=== PATIENT | female | born 1955 | race Caucasian/White ===

== ENCOUNTER → 2017-01-04 | Outpatient (CLI) | payer MEDICARE | LOC: RAD 11:30 | PROVIDERS: ATTEND Internal Medicine Medical Oncology | DX: R51 Headache (principal) | CPT/HCPCS: 70551 ==

== ENCOUNTER → 2017-07-25 | Outpatient (CLI) | payer MEDICARE ==
--- NOTE | 2017-07-25 15:06 | WOMENS IMAGING REPORT ---
EXAM DESCRIPTION: 3D SCREENING MAMMO LEFT COMPLETED DATE/TIME: 07/25/2017 1:21 pm REASON FOR STUDY: SCREENING MAMMO Z12.31 ENCNTR SCREEN MAMMOGRAM FOR MALIGNANT NEOPLASM OF TAMIKO COMPARISON: 07/01/2016 TECHNIQUE: Standard craniocaudal and mediolateral oblique views of the breast recorded using digital acquisition and breast tomosynthesis. LIMITATIONS: None. FINDINGS: BREAST: left No masses, calcifications or architectural distortion. No areas of suspicion. Read with the assistance of CAD. .[facility] - R2 Cenova Version 1.3 .[facility] Imaging - R2 Cenova Version 1.3 .[facility] - R2 Cenova Version 2.4 .[facility] [place]2 Cenova Version 2.4 .[facility] - R2 Agency Cashier Version 9.2 IMPRESSION: NORMAL MAMMOGRAM. BIRADS 1. BREAST DENSITY: b. There are scattered areas of fibroglandular density. BIRAD: 1 Negative RECOMMENDATION: RECOMMENDATION: ROUTINE SCREENING. COMMENT: The patient has been notified of the results by letter per SA requirements. Additional no tification policies are in place for contacting patient with suspicious or incomplete findings. Quality ID #[id number]: The [employer] recommends an annual screening mammogram for women aged 40 years or over. This facility utilizes a reminder system to ensure that all patients receive reminder letters, and/or direct phone calls for appointments. This includes reminders for routine scr eening mammograms, diagnostic mammograms, or other Breast Imaging Interventions when appropriate. Th is patient will be placed in the appropriate reminder system. The [employer] (ACR) has developed recommendations for screening MRI of the breast s in certain patient populations, to be used in conjunction with mammography. Breast MRI surveillance may be appropriate for women with more than 20% lifetime risk of developing breast cancer as determi jairo by genetic testing, significant family history of the disease, or history of mantle radiation for Hodgkins Disease. ACR Practice Guidelines 2008. DBT Technology DBT is a type of tomographic mammography. With conventional mammography, overlapping breast tissue ma y make lesions difficult to detect, even with good compression. DBT uses an x-ray tube that rotates a round the breast, taking images at different angles. These images are then combined to create thin sl ices of the breast that the radiologist can view as a 3D reconstruction. The [employer] unit can perform full-field digital mammograms (2D imaging); or DBT (3D imaging); or both, in a combination mode that quickly performs both the mammogram and the tomosynthesis scan while the breast is still compressed. PQRS 6045F: Fluoroscopic imaging is not utilized for breast tomosynthesis. TECHNICAL DOCUMENTATION: FINDING NUMBER: (1) ASSESSMENT: (1) JOB ID: [id number] [employer]- All Rights Reserved
== END ==
LOC: WI 13:26
PROVIDERS: ATTEND Internal Medicine Medical Oncology
DX: Z12.31 Encounter for screening mammogram for malignant neoplasm of breast (principal)
CPT/HCPCS: 77063; G0202

== ENCOUNTER → 2017-09-20 | Outpatient (CLI) | payer MEDICARE ==
--- NOTE | 2017-09-20 16:26 | RADIOLOGY REPORT (SQ) ---
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 TECHNIQUE: Multiplanar multisequence imaging performed without and with contrast including axial, sa gittal and coronal T2, axial T, axial gradient fat sat T1, axial, sagittal and coronal fat sat T2 pos t contrast. CONTRAST TYPE AND DOSE: 10 mL Multihance. RENAL FUNCTION: GFR > 60. LIMITATIONS: None. FINDINGS: BLADDER AND URETHRA: No focal bladder wall thickening or nodularity. Smooth mucosa. The urethra has smooth contour with no focal asymmetry. No abnormal enhancement. No focal lesions. PELVIC SOFT TISSUES: Normal. No masses. UTERUS: Nabothian cysts, otherwise unremarkable. RIGHT OVARY: Not discretely seen. Artifact related to previous tubal ligation. LEFT OVARY: Not discretely seen. Artifact related to previous tubal ligation. FREE FLUID: None. PELVIC SKELETAL STRUCTURES: No bone lesions. No marrow edema. No evidence of marrow replacement. S I joints intact. EXTRA PELVIS SOFT TISSUES: No masses. OTHER: No other significant finding. IMPRESSION: 1. Normal MRI of the pelvis. No soft tissue mass or bone lesion evident. TECHNICAL DOCUMENTATION: JOB ID: [id number]- All Rights Reserved
--- NOTE | 2017-09-20 16:34 | RADIOLOGY REPORT (SQ) ---
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 Also correlated with separately dictated pelvic MRI from same date. TECHNIQUE: Sagittal and Axial imaging includes T1, T1 post gadolinium, T2, STIR and gradient echo se quences. Coronal T2/HASTE imaging. CONTRAST TYPE AND DOSE: 10 mL Multihance. RENAL FUNCTION: GFR > 60. LIMITATIONS: None. FINDINGS: VISUALIZED UPPER ABDOMEN: Limited evaluation. No acute or suspicious findings suggested. SEGMENTATION: No transitional anatomy. The lowest well-developed disc space is labeled L5-S1. ALIGNMENT: Straightening. Subtle scoliotic curve convex to the right. No significant listhesis, how ever. VERTEBRAE: Multilevel compression fractures, essentially at all of the levels visualized. No associa franklin marrow edema, however. These fractures look chronic. BONE MARROW: No suspicious bone lesions. DISC SIGNAL: Detailed below. Multilevel diminished signal. POSTERIOR ELEMENTS: No pars defect. Multilevel fairly mild facet degenerative overgrowth. HARDWARE: None in the spine. CORD AND CONUS: Normal in size and signal intensity. Conus at the appropriate level. SOFT TISSUES: No aortic aneurysm seen. No bulky retroperitoneal adenopathy or mass. No paraspinal mas s or fluid. L1-L2: Mild disc and facet disease with slight central and foraminal narrowing. L2-L3: Mild disc and facet disease with slight central and foraminal narrowing. L3-L4: Mild disc and facet disease. Slight central and foraminal narrowing. L4-L5: No central stenosis. Fairly mild bilateral foraminal narrowing. L5-S1: Mild left foraminal narrowing. LOWER THORACIC: Incompletely imaged. No stenosis seen. SACRUM: Visualized upper sacrum intact. ENHANCEMENT: No abnormal enhancement. OTHER: No other significant findings. IMPRESSION: 1. Chronic changes in the lumbar spine including numerous old compression fractures. N o acute fracture. No high-grade spinal stenosis. No worrisome bone lesion or abnormal enhancement. TECHNICAL DOCUMENTATION: JOB ID: [id number] [facility]- All Rights Reserved
== END ==
LOC: RAD 14:23
PROVIDERS: ATTEND Internal Medicine Medical Oncology
DX: C90.01 Multiple myeloma in remission (principal)
CPT/HCPCS: 82565; 72158; 72197; A9577

== ENCOUNTER → 2018-07-27 | Outpatient (CLI) | payer MEDICARE ==
--- NOTE | 2018-07-28 09:32 | WOMENS IMAGING REPORT ---
EXAM DESCRIPTION: 3D SCREENING MAMMO LEFT COMPLETED DATE/TIME: 07/27/2018 4:21 pm REASON FOR STUDY: SCREENING MAMMO Z12.31 ENCNTR SCREEN MAMMOGRAM FOR MALIGNANT NEOPLASM OF TAMIKO COMPARISON: 2015, 2016 TECHNIQUE: Standard craniocaudal and mediolateral oblique views of the breast recorded using digital acquisition and breast tomosynthesis. LIMITATIONS: None. FINDINGS: BREAST: left Findings present which are benign by mammographic criteria. No suspicious masses, calcifications or a rchitectural distortion. Pertinent benign findings: Stable calcifications. Read with the assistance of CAD. .[facility] - R2 Cenova Version 1.3 .[facility] - R2 Cenova Version 1.3 .[facility] - R2 Cenova Version 2.4 .[facility] R2 Cenova Version 2.4 .[facility] - R2 Offal Separator Version 9.2 Benign mammographic findings may include one or more of the following: Smooth masses, popcorn/rim/co arse calcifications, asymmetries, post-procedure changes, and lesions with long-standing stability. IMPRESSION: NORMAL MAMMOGRAM. BIRADS 2. BREAST DENSITY: b. There are scattered areas of fibroglandular density. BIRAD: 2 Benign Finding(s) RECOMMENDATION: RECOMMENDATION: ROUTINE SCREENING. COMMENT: The patient has been notified of the results by letter per SA requirements. Additional no tification policies are in place for contacting patient with suspicious or incomplete findings. Quality ID #225: The [employer] recommends an annual screening mammogram for women aged 40 years or over. This facility utilizes a reminder system to ensure that all patients receive reminder letters, and/or direct phone calls for appointments. This includes reminders for routine scr eening mammograms, diagnostic mammograms, or other Breast Imaging Interventions when appropriate. Th is patient will be placed in the appropriate reminder system. The [employer] (ACR) has developed recommendations for screening MRI of the breast s in certain patient populations, to be used in conjunction with mammography. Breast MRI surveillance may be appropriate for women with more than 20% lifetime risk of developing breast cancer as determi jairo by genetic testing, significant family history of the disease, or history of mantle radiation for Hodgkins Disease. ACR Practice Guidelines 2008. DBT Technology DBT is a type of tomographic mammography. With conventional mammography, overlapping breast tissue ma y make lesions difficult to detect, even with good compression. DBT uses an x-ray tube that rotates a round the breast, taking images at different angles. These images are then combined to create thin sl ices of the breast that the radiologist can view as a 3D reconstruction. The [employer] unit can perform full-field digital mammograms (2D imaging); or DBT (3D imaging); or both, in a combination mode that quickly performs both the mammogram and the tomosynthesis scan while the breast is still compressed. PQRS 6045F: Fluoroscopic imaging is not utilized for breast tomosynthesis. TECHNICAL DOCUMENTATION: FINDING NUMBER: (1) ASSESSMENT: (1) JOB ID: [id number] [employer]- All Rights Reserved Reading location - IP/workstation name: [email or web address]
== END ==
LOC: WI 13:09
PROVIDERS: ATTEND Internal Medicine Medical Oncology
DX: Z12.31 Encounter for screening mammogram for malignant neoplasm of breast (principal)

== ENCOUNTER → 2018-08-27 | Outpatient (CLI) | payer MEDICARE ==
--- NOTE | 2018-08-28 10:11 | RADIOLOGY REPORT (SQ) ---
EXAM DESCRIPTION: PET CT WHOLE BODY COMPLETED DATE/TIME: 08/27/2018 8:05 pm REASON FOR STUDY: MYELOMA, BREAST CANCER C90.01 MULTIPLE MYELOMA IN REMISSION COMPARISON: 05/30/2011. RADIONUCLIDE AND DOSE: 10 mCi F18 FDG The route of agent administration: Intravenous FASTING BLOOD SUGAR: 103 mg/dl CONTRAST TYPE AND DOSE: No CT contrast given. TECHNIQUE: Blood glucose level was verified. Above dose of FDG was injected intravenously. 2-D seg mented attenuation correction images were obtained through the entire body. Noncontrast CT images we re obtained for attenuation correction and fusion with emission images. CT images were performed wit hout oral or intravenous contrast and are not sensitive for parenchymal lesions. A series of overlap ping emission PET images were obtained. Images reviewed and manipulated at independent work station by the radiologist. Images stored on PACS. LIMITATIONS: None. FINDINGS: HEAD AND NECK: No areas of abnormal metabolic activity in the soft tissues of the head and neck. CHEST: No areas of abnormal metabolic activity in the chest. ABDOMEN AND PELVIS: No areas of abnormal metabolic activity in the abdomen or pelvis. Expected physi ologic activity is present in the genitourinary system and bowel. LOWER EXTREMITIES: No areas of abnormal metabolic activity in the soft tissues of the lower extremiti es. BONES: No abnormal metabolic activity in the visualized skeleton. ADDITIONAL CT FINDINGS: No additional significant findings on the noncontrast CT images. OTHER: No other significant findings. Background blood pool activity mean SUV 2.23. Background live r activity mean SUV 2.67. IMPRESSION: UNREMARKABLE PET-CT SCAN. NO AREAS OF ABNORMAL METABOLIC ACTIVITY. TECHNICAL DOCUMENTATION: JOB ID: [id number] [employer]- All Rights Reserved Reading location - IP/workstation name: [facility]
== END ==
LOC: RAD 15:50
PROVIDERS: ATTEND Internal Medicine Medical Oncology
DX: C90.01 Multiple myeloma in remission (principal); Z85.3 Personal history of malignant neoplasm of breast
CPT/HCPCS: 78816; A9552

== ENCOUNTER → 2018-09-27 | Outpatient (CLI) | payer MEDICARE, MEDICAID ==
--- NOTE | 2018-09-27 11:47 | RADIOLOGY REPORT (SQ) ---
EXAM DESCRIPTION: RIBS RIGHT W/PA CHEST COMPLETED DATE/TIME: 09/27/2018 10:56 am REASON FOR STUDY: PLEURODYNIA R07.81 PLEURODYNIA COMPARISON: PET-CT 08/27/2018 Skeletal survey 07/01/2016 TECHNIQUE: Frontal view of the chest and additional views of the right ribs acquired. NUMBER OF VIEWS: PA chest, right rib detail four views LIMITATIONS: None. FINDINGS: FRONTAL CXR: No acute infiltrates. No pleural effusion or pneumothorax. Cardiac silhouet te size, drew, bony structures unremarkable. Surgical clips right breast and right upper quadrant po st cholecystectomy. RIBS: No displaced rib fractures. No lytic or blastic bony lesions. OTHER: No other significant finding. IMPRESSION: NO PNEUMOTHORAX. NO DISPLACED RIB FRACTURES. COMMENT: SITE OF TRAUMA/COMPLAINT MARKED/STAMP COMPLETED: YES. TECHNICAL DOCUMENTATION: JOB ID: [id number] [employer]- All Rights Reserved Reading location - IP/workstation name: [email or web address]
== END ==
LOC: OD 09:12
PROVIDERS: ATTEND Internal Medicine Medical Oncology
DX: R07.81 Pleurodynia (principal)

== ENCOUNTER 2018-12-14 06:30 | Day surgery (SDC) | payer MEDICARE, MEDICAID ==
[2018-12-08 13:25] LABS: HEMATOCRIT 38.8 % (36.0-47.0); HEMOGLOBIN 13.7 g/dL (12.0-15.5); MEAN CORPUSCULAR HEMOGLOBIN 35.7 pg (27.0-33.4); MEAN CORPUSCULAR HGB CONC 35.2 g/dL (32.0-36.0); MEAN CORPUSCULAR VOLUME 101 fl (80-97); PLATELET COUNT 181 10^3/uL (150-450); RED BLOOD COUNT 3.83 10^6/uL (3.72-5.28); RED CELL DISTRIBUTION WIDTH 12.4 % (11.5-14.0); WHITE BLOOD COUNT 4.8 10^3/uL (4.0-10.5)
[2018-12-08 13:28] LABS: APPEARANCE,URINE CLEAR; BILIRUBIN,URINE NEGATIVE (NEGATIVE); COLOR,URINE YELLOW; GLUCOSE, URINE NEGATIVE (NEGATIVE); KETONES,URINE NEGATIVE (NEGATIVE); LEUKOCYTE ESTERASE,URINE NEGATIVE (NEGATIVE); NITRITE,URINE NEGATIVE (NEGATIVE); PROTEIN,URINE NEGATIVE (NEGATIVE); URINE SPECIFIC GRAVITY 1.009; UROBILINOGEN,URINE NEGATIVE mg/dL (<2.0)
[2018-12-08 13:44] LABS: ALANINE AMINOTRANSFERASE 27 U/L (9-52); ALBUMIN 4.1 g/dL (3.5-5.0); ALKALINE PHOSPHATASE 55 U/L (38-126); ANION GAP 8 (5-19); ASPARTATE AMINO TRANSFERASE 23 U/L (14-36); BILIRUBIN,DIRECT 0.1 mg/dL (0.0-0.4); BILIRUBIN,TOTAL 0.3 mg/dL (0.2-1.3); BLOOD UREA NITROGEN 18 mg/dL (7-20); CALCIUM 9.2 mg/dL (8.4-10.2); CARBON DIOXIDE 30 mmol/L (22-30); CHLORIDE 101 mmol/L (98-107); GLUCOSE 87 mg/dL (75-110); POTASSIUM 4.3 mmol/L (3.6-5.0); SODIUM 138.8 mmol/L (137-145); TOTAL PROTEIN 6.5 g/dL (6.3-8.2)
--- NOTE | 2018-12-08 21:22 | EKG REPORT ---
SEVERITY:- ABNORMAL ECG - SINUS TACHYCARDIA PROBABLE LEFT ATRIAL ABNORMALITY BORDERLINE LEFT AXIS DEVIATION BORDERLINE T WAVE ABNORMALITIES : Confirmed by: Renae Reed MD 08-Dec-2018 21:20:42
[~2018-12-14 06:30] MED LIST: CEFAZOLIN 1 GM/D5W RTU 1 GM/50 ML RTUPB IV ONE; CEFAZOLIN 1 GM/D5W RTU 1 GM/50 ML RTUPB IV PRN; LACTATED RINGERS 1000 ML IV PRN; LIDOCAINE 0.5% INJ-PF (5 MG/ML) 50 ML SDV SUBCUT PRN
[2018-12-14] MEDS ORDERED: ACETAMINOPHEN 1,000 MG/100 ML RTUPB IV ONE ×2 (08:54→18:00)
[2018-12-14] MEDS ORDERED: HYDROMORPHONE HCL INJ/PF 2 MG/ML AMPULE ONE (08:54)
[2018-12-14] MEDS ORDERED: FENTANYL CITRATE INJ/PF 250 MCG/5 ML AMPULE ONE (08:54)
[2018-12-14] MEDS ORDERED: PROPOFOL INJ 200 MG/20 ML VIAL IV ONE (08:54)
[2018-12-14] MEDS ORDERED: MIDAZOLAM 2 MG/2 ML INJ ONE (08:54)
[2018-12-14] MEDS ORDERED: DEXAMETHASONE SOD PHOSPHATE INJ 4 MG/1 ML VIAL ONE (10:06)
[2018-12-14] MEDS ORDERED: SUCCINYLCHOLINE CHLORIDE INJ 200 MG/10 ML VIAL ONE (10:06)
[2018-12-14] MEDS ORDERED: GLYCOPYRROLATE 1 MG/5 ML SYRINGE ONE (10:06)
[2018-12-14] MEDS ORDERED: ONDANSETRON HCL INJ/PF 4 MG/2 ML SDV ONE (10:06)
[2018-12-14] MEDS ORDERED: PHENYLEPHRINE HCL INJ/PF 10 MG/1 ML SDV ONE (10:06)
[2018-12-14] MEDS ORDERED: ROCURONIUM BROMIDE INJ 50 MG/5 ML VIAL IV ONE (10:06)
[2018-12-14] MEDS ORDERED: NEOSTIGMINE METHYLSULFATE 10 MG/10 ML VIAL ONE (10:06)
[2018-12-14] MEDS ORDERED: DIPHENHYDRAMINE HCL 50 MG/ML VIAL IV PRN (10:27)
[2018-12-14] MEDS ORDERED: FENTANYL CITRATE INJ/PF 100 MCG/2 ML AMPUL IV PRN ×3 (10:27)
[2018-12-14] MEDS ORDERED: PROMETHAZINE HCL INJ 25 MG/1 ML VIAL IV PRN (10:27)
[2018-12-14] MEDS ORDERED: MEPERIDINE HCL/PF INJ 25 MG/1 ML DISP.SYRIN IV PRN (10:27)
[2018-12-14] MEDS ORDERED: MORPHINE SULFATE 10 MG/ML INJ IV PRN ×2 (10:27→12:39)
[2018-12-14] MEDS ORDERED: LIDOCAINE 1%/EPINEPHRINE INJ 20 ML VIAL ONE (10:55)
[2018-12-14] MEDS: FENTANYL CITRATE INJ/PF 100 MCG/2 ML AMPUL ONE ×2 (12:05→12:10)
[2018-12-14] MEDS ORDERED: KETOROLAC TROMETHAMINE INJ/PF 30 MG/1 ML SDV ONE (12:13)
[2018-12-14] MEDS: HYDROMORPHONE HCL INJ/PF 2 MG/ML AMPULE ONE ×2 (12:16→12:36)
--- NOTE | 2018-12-14 12:22 | OPERATIVE REPORT E ---
Operative Report NAME: GRACE ZAPATA : 1955 AGE: 63Y DATE OF SURGERY: 12/14/2018 ROOM: PREOPERATIVE DIAGNOSIS: Uterovaginal prolapse. POSTOPERATIVE DIAGNOSIS: Uterovaginal prolapse. OPERATION: Robotic-assisted total laparoscopic hysterectomy with bilateral salpingo-oophorectomy, high uterosacral suspension, and posterior vaginal repair. SURGEON: CHANDU COSBY M.D. TRAILER STEERER: Matilde Barrientos clinical research assistant surgical lead ANESTHESIA: Devan Powers M.D. FINDINGS: Grade 2 prolapse of the uterus and vaginal mucosa. Postmenopausal appearing ovaries. Uterus sounded to approximately 6.5 cm. COMPLICATIONS: None. ESTIMATED BLOOD LOSS: 100 mL. SPECIMENS REMOVED: Uterus, cervix, and bilateral fallopian tubes and ovaries. PROCEDURE IN DETAIL: The patient was taken to the operating room, prepared, and draped in a normal sterile fashion in the dorsal lithotomy position. Under sterile conditions a Vásquez catheter was placed to gravity. Sterile speculum was placed into the vagina. The cervix was prepped and grasped on the anterior aspect with Betadine. The cervix was dilated to accommodate a medium VCare uterine manipulator which was placed without difficulty. The sterile speculum was removed and the tenaculum was also removed. Gloves were changed and attention was turned to the upper portion of the case where a 2 cm incision was made just above the umbilicus and the fascia was grasped with 2 Kochers and transected with Mayos. The fascia was then extended laterally each way with Mayos to accommodate 2 cm and the GelPort was then placed in a normal fashion. The abdomen was inflated with approximately 2 L of CO2 gas. The patient was placed in steep Trendelenburg, and under direct visualization two 5 mm ports were placed 10 cm lateral from the umbilicus on either side. The robot was docked and the vessel sealer was placed in the left trocar and the monopolar scissors were placed in the right trocar. I then unscrubbed and sat at the console where beginning with the left IP ligament this was transected using the vessel sealer. The rest of the round ligament was grasped and transected with the vessel sealer, and the rest of the uterine artery was continued to be skeletonized and transected using the vessel sealer until the vaginal mucosa was noted and the VCare cup could be located through the mucosa. The bladder was then dissected away with the monopolar scissors, creating the bladder flap, and blunt dissection. Attention was turned to the right adnexa where in a similar fashion the IP ligament was transected and the right ovary was freed. I continued dissection of the round ligament and the uterine arteries in a similar fashion until again the VCare was noted through the mucosa, and the bladder flap was completed using the monopolar scissors and blunt dissection. The monopolar scissors were then utilized on the posterior aspect to create the colporrhaphy, which was completed in a circumferential fashion following the outline of the VCare through the mucosa until this specimen was completely freed, and the specimen was then removed through the vagina. Instruments were changed to a Raji Needle Roofing Tile Sorter and ProGrasp. A V-Loc needle was introduced through the assistance port and the V-Loc needle was used to close the vaginal cuff and incorporate the uterosacral ligament into the vaginal closure for a uterosacral suspension. Once the vaginal cuff was closed the ureters were inspected and found to be peristalsing, and no signs of hydroureter were noted. The upper portion of the case was then concluded. I then rescrubbed and sat for the lower portion of the case where the patient was flattened and the patient's legs were raised for dorsal lithotomy position. The vagina was once more examined. It was found at this point that the anterior aspect of the vagina actually had quite a bit of support to it; however, there was a posterior rectocele noted. Therefore, I decided that I would just do a posterior repair as the anterior aspect was not protruding enough to warrant any further surgical intervention. The posterior mucosa was then hydrodissected with 0.25% lidocaine with epinephrine in the midline. This was scored with a 15 blade. The mucosa was then dissected away from the rectocele using both blunt dissection and [place] as needed. Two support sutures were placed with 2-0 Vicryl pop-offs in the rectovaginal mucosa, and the rectocele was tucked beneath the support sutures. Once this was accomplished the vaginal mucosa was then closed using 4-0 Vicryl in a running fashion, and the case was concluded at this point as the inspection of the vagina demonstrated good results. The vagina was packed with a vaginal packing coated in Premarin cream. The patient was taken to recovery in stable condition. Sponge, lap, and needle counts were correct x2. DICTATING PHYSICIAN: CHANDU COSBY M.D. [id number] PHY#: [id number] ID: [id number] JOB#: [id number] ACCT: [id number] cc:CHANDU COSBY M.D. >
[2018-12-14] MEDS ORDERED: IBUPROFEN 800 MG TABLET PO PRN (12:37)
[2018-12-14] MEDS ORDERED: PROMETHAZINE HCL INJ 25 MG/1 ML VIAL ONE (12:45)
[2018-12-14] MEDS: DOCUSATE SODIUM 100 MG CAPSULE PO SCH (17:12)
[2018-12-14] MEDS: OXYCODONE-ACETAMINOPHEN 5-325 MG TABLET PO PRN (17:13)
[2018-12-14] MEDS: KETOROLAC TROMETHAMINE INJ/PF 30 MG/1 ML SDV IV SCH (20:00)
[2018-12-15] MEDS: OXYCODONE-ACETAMINOPHEN 5-325 MG TABLET PO PRN (00:19)
[2018-12-15] MEDS: KETOROLAC TROMETHAMINE INJ/PF 30 MG/1 ML SDV IV SCH (04:40)
[2018-12-15 07:30] LABS: ABSOLUTE MONOCYTES (AUTO) 0.5 10^3/uL (0.1-1.4); ABSOLUTE NEUT (AUTO) 3.7 10^3/uL (1.7-8.2); BASOPHILS % (AUTO) 0.1 % (0-2); EOSINOPHILS % (AUTO) 0.5 % (0-6); HEMATOCRIT 29.5 % (36.0-47.0); HEMOGLOBIN 10.3 g/dL (12.0-15.5); LYMPHOCYTES % (AUTO) 31.9 % (13-45); MEAN CORPUSCULAR HEMOGLOBIN 36.2 pg (27.0-33.4); MEAN CORPUSCULAR HGB CONC 35.1 g/dL (32.0-36.0); MEAN CORPUSCULAR VOLUME 103 fl (80-97); MONOCYTES % (AUTO) 8.1 % (3-13); PLATELET COUNT 123 10^3/uL (150-450); RED BLOOD COUNT 2.86 10^6/uL (3.72-5.28); RED CELL DISTRIBUTION WIDTH 12.5 % (11.5-14.0); SEGMENTED NEUTROPHILS % (AUTO) 59.4 % (42-78); TOTAL CELLS COUNTED % (AUTO) 100 %; WHITE BLOOD COUNT 6.2 10^3/uL (4.0-10.5)
[2018-12-15] MEDS: DOCUSATE SODIUM 100 MG CAPSULE PO SCH (09:25)
--- NOTE | 2018-12-15 11:17 | PDOC DISCHARGE SUMMARY ---
General - Admit/Disc Date/PCP Admission Date/Primary Care Provider: BARBARA SANZ Discharge Date: 12/15/18 - Discharge Diagnosis (1) Uterovaginal prolapse, complete Is this a current diagnosis for this admission?: Yes - Additional Information Home Medications: Calcium Carbonate [Calcium] 500 mg PO DAILY 12/08/18 Cholecalciferol (Vitamin D3) [Vitamin D3 2000 unit Tablet] 2,000 unit PO DAILY 12/08/18 Clonazepam [Klonopin] 2 mg PO QHS 12/08/18 Fluoxetine HCl [Prozac] 20 mg PO DAILY 12/08/18 Levothyroxine Sodium 100 mcg PO DAILY 12/08/18 Lisinopril/Hydrochlorothiazide [Lisinopril-Hctz 10-12.5 mg Tab] 1 tab PO DAILY 12/08/18 Multivit-Min/Iron Fum/Folic AC [Wooze-Baydmcq-Zjoegatf Tablet] 1 each PO DAILY 12/08/18 Tamoxifen Citrate [Nolvadex 10 Mg Tablet] 10 mg PO BID 12/08/18 History of Present Illness History of Present Illness: GRACE ZAPATA is a 63 year old female Hospital Course Hospital Course: underwent RATLH/BSO w/ RADAMES and posterior repair. unremarkable postoperative course. Physical Exam - Physical Exam Vital Signs: Temp Pulse Resp BP Pulse Ox 98.0 F 82 16 114/58 L 99 12/15/18 08:22 12/15/18 08:22 12/15/18 08:22 12/15/18 08:22 12/15/18 08:22 Intake & Output 12/14/18 12/15/18 12/16/18 06:59 06:59 06:59 Intake Total 0 3320 Output Total 3625 Balance 0 -305 Weight 58.97 kg General appearance: PRESENT: no acute distress, cooperative - incisions healing well. vaginal packing removed without difficulty Result Laboratory Results: 12/15/18 06:49 12/14/18 07:13 12/15/18 06:49 WBC 6.2 RBC 2.86 L Hgb 10.3 L Hct 29.5 L MCV 103 H MCH 36.2 H MCHC 35.1 RDW 12.5 Plt Count 123 L Seg Neutrophils % 59.4 Lymphocytes % 31.9 Monocytes % 8.1 Eosinophils % 0.5 Basophils % 0.1 Absolute Neutrophils 3.7 Absolute Lymphocytes 2.0 Absolute Monocytes 0.5 Absolute Eosinophils 0.0 Absolute Basophils 0.0 Plan Discharge Plan: discharge home with premarin cream to use twice daily. follow up in 2 weeks as scheduled. Time Spent: Less than 30 Minutes
[2018-12-15] MEDS ORDERED: ESTROGENS,CONJUGATED 0.625 MG/1 GM 30 GM TUBE PV SCH (11:30)
[2018-12-15 11:45] VITALS: BP 129/70
== END 2018-12-15 12:12 | disposition home or self-care (01) ==
LOC: OROUT 06:30 → 2S 14:04 → OROUT 12-15 12:12
PROVIDERS: ATTEND Obstetrics & Gynecology
DX: N81.3 Complete uterovaginal prolapse (principal); D25.0 Submucous leiomyoma of uterus; N80.0 Endometriosis of uterus; C90.00 Multiple myeloma not having achieved remission; I10 Essential (primary) hypertension; E07.9 Disorder of thyroid, unspecified; Z79.899 Other long term (current) drug therapy; Z01.818 Encounter for other preprocedural examination; Z85.3 Personal history of malignant neoplasm of breast
CPT/HCPCS: 58571; S2900; 36415; 80053; 81001; 840; 84132; 85025; 85027; 86850; 86900; 86901; 88307; 93005; 93010; J0131; J0330; J0690; J1100; J1170; J1885; J2250; J2270; J2370; J2405; J2550; J2704; J3010; J3490

== ENCOUNTER → 2019-08-20 | Outpatient (CLI) | payer MEDICARE, MEDICAID ==
--- NOTE | 2019-08-20 14:48 | WOMENS IMAGING REPORT ---
EXAM DESCRIPTION: 3D SCREENING MAMMO LEFT COMPLETED DATE/TIME: 08/20/2019 7:58 am REASON FOR STUDY: Z12.31 ENCOUNTER FOR SCREENING MAMMOGRAM FOR MALIGNANT NEOPLASM OF BREAST Z12.31 ENCNTR SCREEN MAMMOGRAM FOR MALIGNANT NEOPLASM OF TAMIKO COMPARISON: 2015 to 2017 EXAM PARAMETERS: Standard craniocaudal and mediolateral oblique views of the breast recorded using digital acquisition and breast tomosynthesis. Read with the assistance of CAD. .[facility] [place] - [email or web address] Adhesive Bandage Machine Operator Version 9.2 LIMITATIONS: None. FINDINGS: BREAST: left Findings present which are benign by mammographic criteria. No suspicious masses, calcifications or a rchitectural distortion. Pertinent benign findings: Retracting fat necrosis at 11 o'clock. Benign finding. Benign mammographic findings may include one or more of the following: Smooth masses, popcorn/rim/co arse calcifications, asymmetries, post-procedure changes, and lesions with long-standing stability. IMPRESSION: BENIGN FINDINGS. BIRADS 2. BREAST DENSITY: d. The breasts are extremely dense, which lowers the sensitivity of mammography. BIRAD: ASSESSMENT: 2 Benign Finding(s) RECOMMENDATION: RECOMMENDATION: ROUTINE SCREENING. COMMENT: The patient has been notified of the results by letter per SA requirements. Additional no tification policies are in place for contacting patient with suspicious or incomplete findings. Quality ID #225: The [employer] recommends an annual screening mammogram for women aged 40 years or over. This facility utilizes a reminder system to ensure that all patients receive reminder letters, and/or direct phone calls for appointments. This includes reminders for routine scr eening mammograms, diagnostic mammograms, or other Breast Imaging Interventions when appropriate. Th is patient will be placed in the appropriate reminder system. TECHNICAL DOCUMENTATION: FINDING NUMBER: (1) ASSESSMENT: (1) JOB ID: [id number] [employer]- All Rights Reserved Reading location - IP/workstation name: [email or web address]
== END ==
LOC: WI 07:32
PROVIDERS: ATTEND Physician Assistant
DX: Z12.31 Encounter for screening mammogram for malignant neoplasm of breast (principal)

== ENCOUNTER → 2020-01-22 | Outpatient (CLI) | payer MEDICARE, MEDICAID ==
--- NOTE | 2020-01-22 09:19 | ER RDC ASSESSMENT REPORT ---
Intake - In the Last 14 days Have you traveled outside [place]?: No --City/State: Reports has been exposed to numerous people in the last 2 weeks in the home Have you been in close contact with someone CONFIRMED: No Worked in Healthcare?: No - Symptoms Subjective Fever(Barnett feverish): No Chills: No Muscule Aches: No --How many day(s)?: Denies muscle aches but reports cramps with cough Runny Nose: No Sore Throat: Yes Cough (New or worsening chronic cough): Yes --How many day(s)?: Reports a cough for almost 2 weeks allergy symptoms Shortness of breath: Yes Nausea or Vomiting: No Headache: Yes Abdominal Pain: No Diarrhea(3 or more loose stools in last 24 hours): No - Do you have any of the following Chronic lung disease: Asthma or emphysema or COPD: No Chronic Lung Disease Comment: Does not have a confirmed chronic lung disease however reports uses an inhaler and has been using the boyfriend's nebulizer Cystic Fibrosis: No Diabetes: No High Blood Pressure: Yes Cardiovascular Disease: Yes Chronic Kidney Disease: No Chronic Liver Disease: No Chronic blood disorder like Sickle Cell Disease: No Immune System Comment: Reports breast cancer in 2006 and has been off medication tamoxifen for 6 months and is in remission Neurologic condition that limits movement: No Developmental delay - Moderate to Severe: No Recent (within past 2 weeks) or current : No Morbid Obesity (>100 pounds over ideal weight): No Other Comment: Reports history of hypothyroidism and recent bladder tacking procedure - Objective Temperature: 97.6 F Pulse Rate: 99 Respiratory Rate: 20 Blood Pressure: 119/71 O2 Sat by Pulse Oximetry: 96 Objective: Given above, testing performed: If Testing Performed: Test Specimen Type Sent to General - General Information source: Patient Notes: Here for covid testing and upper respiratory symptoms for the past 2 weeks. Reports does not have a documented history of COPD or asthma does use an inhaler with seasonal allergies. reports has been using boyfriends nebulizer over the past few days with increasing frequency. - HPI Onset: Other - Reports symptoms started 2 weeks ago with allergy symptoms - Related Data Allergies/Adverse Reactions: No Known Allergies Allergy (Verified 12/14/18 07:06) Past Medical History - General Information source: Patient - Social History Smoking Status: Never Smoker Family History: Arthritis, CAD, COPD, CVA, Hyperlipidemia, Hypertension, Malignancy - Past Medical History Cardiac Medical History: Reports: Hx Hypertension Denies: Hx Coronary Artery Disease, Hx Heart Attack Pulmonary Medical History: Denies: Hx Asthma, Hx Bronchitis, Hx COPD, Hx Pneumonia Neurological Medical History: Denies: Hx Cerebrovascular Accident, Hx Seizures Endocrine Medical History: Reports: Hx Hypothyroidism Malignancy Medical History: Reports: Hx Breast Cancer GI Medical History: Reports: Hx Irritable Bowel, Hx Colonoscopy Musculoskeletal Medical History: Reports Hx Arthritis, Reports Hx Musculoskeletal Deformity, Reports Hx Musculoskeletal Trauma Psychiatric Medical History: Reports: Hx Depression Past Surgical History: Reports: Hx Breast Surgery - breast reconstruction, Hx Mastectomy, Hx Orthopedic Surgery - trigger finger release carpal tunnel and tendon release top of wrist Physical Exam - General Notes: PHYSICAL EXAMINATION: GENERAL: Well-appearing and in no acute distress. HEAD: Atraumatic, normocephalic. EYES: sclera anicteric, conjunctiva are normal. ENT: nares patent. Moist mucous membranes. NECK: Normal range of motion, supple without lymphadenopathy LUNGS: CTAB and equal. faint expiratory wheeze noted to right upper lung all other areas clear with no rales or rhonchi. Dry cough non productive cough noted HEART: Regular rate and rhythm without murmurs ABDOMEN: Soft, nontender, normal bowel sounds, no guarding. NEUROLOGICAL: Normal speech. PSYCH: Normal mood SKIN: Warm, Dry, normal turgor, - HEENT Eyelashes: Normal Pupils: PERRL - Respiratory Breath sounds: Normal, Nonproductive cough, Wheezing, Other - Lung sounds clear except for faint expiratory wheeze to right upper lobe. Resp even and unlabored. Diagnostic Results Laboratory Results: Patient informed of negative strep and negative flu results. Pending strep culture. Pending COVID testing results. Instructions for COVID 19 provided including: As a person under investigation for Covid 19, the [place] department of Health and Human Services, division of public health advises you to adhere to the following guidance until your test results are reported to you. If your test result is positive, you will receive additional information from your provider and your local health department at that time. Remain at home until you are cleared by the health provider or public health authorities. Keep a log of visitors to your home, notify any visitors to your home of your isolation status. If you plan to move to a new address or leave the [facility], notify the local health department in your County. Call your doctor or seek care if you have an urgent medical need. Before seeking medical care, call ahead to get instructions from the provider before arriving at the medical office clinic or hospital. Notify them that you are being tested for the virus that causes Covid 19 so that arrangements can be made, as necessary, to prevent transmission to others in the healthcare setting. Next, notify the local health department in your county. If a medical emergency arises and you need to call 911, inform the first responders that you are being tested for the virus that causes Covid 19. Next, notify the local health department in your county. Patient Education/Counseling Counseling/Education: Patient presents with upper respiratory symptoms worrisome for possible Covid 19. Patient does not have emergency worring symptoms such as difficulty breathing, shortness of breath, chest pain, pressure, confusion or cyanosis. Patient appears suitable for discharge. Patient's vital signs are stable and patient is nontoxic in appearance. Good return precautions have been discussed with patient, patient verbalized understanding and is agreeable with discharge plan of care at this time. Intructed to follow up with PCP or to ED for persistent or worsening symptoms. RDC Discharge - Discharge Condition: Stable Disposition: Home; Selfcare
[2020-01-22 09:54] VITALS: BP 119/71
[2020-01-22 10:22] LABS: A TYPE INFLUENZA AG NEGATIVE (NEGATIVE); B INFLUENZA AG NEGATIVE (NEGATIVE)
== END ==
LOC: RDC 08:36
PROVIDERS: ATTEND Nurse Practitioner Family
DX: R50.9 Fever, unspecified (principal); R05 Cough; Z20.828 Contact with and (suspected) exposure to other viral communicable diseases
CPT/HCPCS: 87070; 87880; 87635; 87804; G0463; 99211

== ENCOUNTER 2020-04-14 08:33 | Day surgery (SDC) | payer MEDICARE, MEDICAID ==
--- NOTE | 2020-04-14 10:14 | Operative Report ---
Operative Report DATE OF SURGERY: 04/14/20 Operative Report: The risks benefits and alternatives of the procedure explained to the patient in detail and informed consent is obtained.A GIF Olympus video scope was inserted into the patient's mouth and hypopharynx ,the esophagus is identified intubated and insufflated ,the scope was then advanced through the esophagus stomach and duodenum, retroflexion maneuver is done the esophagus stomach and first and second portions of the duodenum examined PREOPERATIVE DIAGNOSIS: Dysphagia OPERATION: EGD with biopsy SURGEON: JUSTICE MORALES ANESTHESIA: LMAC TISSUE REMOVED OR ALTERED: As noted above. COMPLICATIONS: None. ESTIMATED BLOOD LOSS: None. INTRAOPERATIVE FINDINGS: As noted above. PROCEDURE: Patient tolerated the procedure well. No immediate postprocedure complications are noted. Patient is discharged in good condition. Discharge date 04/14/2020. Discharge diet: Regular. Discharge activity: Regular. 2 to 3-week follow-up to discuss findings. Patient is instructed call the office or proceed to the emergency room should there be any further problems or questions. 3 to 5-year surveillance colonoscopy.
[2020-04-14] MEDS ORDERED: PROPOFOL INJ 200 MG/20 ML VIAL IV ONE (10:20)
--- NOTE | 2020-04-14 10:51 | Progress Note ---
Provider Note Provider Note: Findings of esophagitis, a schatzki's ring that was broken small hiatal hernia and gastritis the reason for the surveillance colonoscopy as dictated is for a personal history of polyps
[2020-04-14] MEDS ORDERED: SIMETHICONE 80 MG TAB.CHEW ONE (10:53)
[2020-04-14 11:04] VITALS: BP 126/73
== END 2020-04-14 11:10 | disposition home or self-care (01) ==
LOC: END 08:33
PROVIDERS: ATTEND Internal Medicine Gastroenterology
DX: K22.2 Esophageal obstruction (principal); K29.70 Gastritis, unspecified, without bleeding; K20.9 Esophagitis, unspecified; K44.9 Diaphragmatic hernia without obstruction or gangrene; E07.9 Disorder of thyroid, unspecified; I10 Essential (primary) hypertension; C90.00 Multiple myeloma not having achieved remission; Z85.3 Personal history of malignant neoplasm of breast; Z85.89 Personal history of malignant neoplasm of other organs and systems; Z03.818 Encounter for observation for suspected exposure to other biological agents ruled out
CPT/HCPCS: 43239; 88342 ×2; 88305 ×2; 00731; U0003; A9270; J2704; C9803; 731; 87635

== ENCOUNTER → 2020-08-21 | Outpatient (CLI) | payer MEDICARE, MEDICAID ==
--- NOTE | 2020-08-21 11:33 | WOMENS IMAGING REPORT ---
EXAM DESCRIPTION: 3D SCREENING MAMMO LEFT IMAGES COMPLETED DATE/TIME: 08/21/2020 11:03 am REASON FOR STUDY: Z12.31 ENCOUNTER FOR SCREENING MAMMOGRAM FOR MALIGNANT NEOPLASM OF BREAST Z12.31 ENCNTR SCREEN MAMMOGRAM FOR MALIGNANT NEOPLASM OF TAMIKO Z85.3 PERSONAL HISTORY OF MALIGNANT NEOPLASM O F BREAST Z13.820 ENCOUNTER FOR SCREENING FOR OSTEOPOROSIS COMPARISON: Priors back to 2016 EXAM PARAMETERS: Standard craniocaudal and mediolateral oblique views of the breast recorded using digital acquisition and breast tomosynthesis. Read with the assistance of CAD. .[facility] - [employer]er Version 9.2 LIMITATIONS: None. FINDINGS: BREAST: left Findings present which are benign by mammographic criteria. No suspicious masses, calcifications or a rchitectural distortion. Pertinent benign findings: Stable calcifications. Benign mammographic findings may include one or more of the following: Smooth masses, popcorn/rim/co arse calcifications, asymmetries, post-procedure changes, and lesions with long-standing stability. IMPRESSION: BENIGN FINDINGS. BIRADS 2. BREAST DENSITY: b. There are scattered areas of fibroglandular density. BIRAD: ASSESSMENT: 2 Benign Finding(s) RECOMMENDATION: RECOMMENDATION: ROUTINE SCREENING. COMMENT: The patient has been notified of the results by letter per SA requirements. Additional no tification policies are in place for contacting patient with suspicious or incomplete findings. Quality ID #[id number]: The [employer] recommends an annual screening mammogram for women aged 40 years or over. This facility utilizes a reminder system to ensure that all patients receive reminder letters, and/or direct phone calls for appointments. This includes reminders for routine scr eening mammograms, diagnostic mammograms, or other Breast Imaging Interventions when appropriate. Th is patient will be placed in the appropriate reminder system. TECHNICAL DOCUMENTATION: FINDING NUMBER: (1) ASSESSMENT: (1) JOB ID: [id number] 2010 [email or web address]- All Rights Reserved Reading location - IP/workstation name: [email or web address]
--- NOTE | 2020-08-21 11:34 | WOMENS IMAGING REPORT ---
EXAM DESCRIPTION: BONE DENSITY HIP/SPINE IMAGES COMPLETED DATE/TIME: 08/21/2020 11:03 am REASON FOR STUDY: Z79.811 HALF-WAY (CURRENT) USE OF AROMATASE INHIBITORS Z12.31 ENCNTR SCREEN MAMM OGRAM FOR MALIGNANT NEOPLASM OF TAMIKO Z85.3 PERSONAL HISTORY OF MALIGNANT NEOPLASM OF BREAST Z13.820 ENCOUNTER FOR SCREENING FOR OSTEOPOROSIS COMPARISON: 2012 TECHNIQUE: Dual-Energy X-ray Absorptiometry (DEXA) of the AP Spine and Hip. LIMITATIONS: None. FINDINGS: LUMBAR SPINE: The bone mineral density (BMD) measured from L1-L4 in the AP projection correlates with a T-score of -1.9, which is osteopenia as defined by the World Health Organization. BMD Change vs Baseline: N/A HIP: The bone mineral density (BMD) measured in the left hip correlates with a T-score of -3.5, which is o steoporosis as defined by the World Health Organization. BMD Change vs Baseline: N/A 10 year Fracture Risk Assessment: Major Osteoporotic Fracture: Not available. Hip Fracture: Not available. IMPRESSION: 1. LUMBAR SPINE WHO CLASSIFICATION: OSTEOPENIA. 2. HIP WHO CLASSIFICATION: OSTEOPOROSIS. OVERALL ASSESSMENT: WHO CLASSIFICATION: OSTEOPOROSIS. COMMENT: The World Health Organization defines low BMD as follows: T-score: Normal: At or above -1.0 Osteopenia: Between -1.0 and -2.5 Osteoporosis: At or below -2.5 without fractures Established osteoporosis: At or below -2.5 with fractures In general, you may wish to consider: Diagnosis Treatment Follow-up DEXA Normal BMD Prevention 2-3 years Osteopenia Prevention/Therapy 1-2 years Osteoporosis Therapy Yearly TECHNICAL DOCUMENTATION: JOB ID: [id number] 2010 [email or web address]- All Rights Reserved Reading location - IP/workstation name: [email or web address]
== END ==
LOC: WI 10:08
PROVIDERS: ATTEND Nurse Practitioner Family
DX: Z12.31 Encounter for screening mammogram for malignant neoplasm of breast (principal); M85.88 Other specified disorders of bone density and structure, other site; M81.8 Other osteoporosis without current pathological fracture; E28.39 Other primary ovarian failure; Z85.3 Personal history of malignant neoplasm of breast; Z13.820 Encounter for screening for osteoporosis; Z79.811 Long term (current) use of aromatase inhibitors
CPT/HCPCS: 77080